=== PATIENT | female | born 1925 | race Caucasian/White ===

== ENCOUNTER → 2016-02-21 | Outpatient (CLI) | payer OTHER ==
[~2016-02-21] MED LIST: ACET-1311 PO; ACET650S10 RE; ALBUAER2 INH; AMOX1TAB43 PO; ARTIOIN OPB; ASPI81TA21 PO; BISA1SUP4 PR; CALC600T PO; CALCTAB5 PO; CARB0.01 OPB; CHOL100010 PO; CITA20TA4 PO; COEN1CAP28 PO; CYAN10005 PO; DILT240C57 PO; DOCU100C31 PO; DONE10TA12 PO; FLUO0.0543 TOP; FLUO0.1S2 OPB; GUAI100S16 PO; GUAI1TAB75 PO; IPRASOL4 INH; JUICE SUPPLEMENT PO; LDXO60 TOP; LEVO1TAB50 PO; LEVO50TA6 PO; LISI5TAB3 PO; LSN5 PO; MEMA10TA PO; MOML PO; MULT-190 PO; MULTCAP33 PO; NTRS PO; OXGN; PRED20TA PO; PRED20TA2 PO; SENN-61 PO; SIMV10TA2 PO; SYMIN8045 PO; UMEC1INH INH
[2016-02-21 11:19] LABS: URINE APPEARANCE CLEAR (CLEAR); URINE BILIRUBIN NEG (NEG); URINE COLOR YELLOW; URINE NITRITE NEG (NEG); URINE PH 5.5 (4.5-7.5); URINE SPECIFIC GRAVITY 1.021 (1.000-1.030); UROBILINOGEN NEG (NEG)
[2016-02-21 11:28] LABS: MANUAL MICROSCOPIC REQUIRED? NO; REVIEW REQ? NO
== END ==
LOC: C.LABUPHEI 10:50
PROVIDERS: ATTEND Family Medicine
DX: R35.0 Frequency of micturition (principal)

== ENCOUNTER → 2016-03-26 | Outpatient (CLI) | payer OTHER ==
[2016-03-26 10:19] LABS: URINE APPEARANCE TURBID (CLEAR); URINE BILIRUBIN NEG (NEG); URINE COLOR YELLOW; URINE EPITHELIAL CELL AUTO 0-5 /lpf (0-5); URINE NITRITE POS (NEG); URINE SPECIFIC GRAVITY 1.009 (1.000-1.030); UROBILINOGEN NEG (NEG)
[2016-03-26 10:26] LABS: MANUAL MICROSCOPIC REQUIRED? NO; REVIEW REQ? NO
[2016-03-26 10:27] LABS: SULFASALICYLIC ACID POS (NEG)
== END ==
LOC: C.LABUPUNI 09:04
PROVIDERS: ATTEND Family Medicine
DX: R35.8 Other polyuria (principal); R39.15 Urgency of urination

== ENCOUNTER → 2016-04-03 | Outpatient (CLI) | payer OTHER ==
[2016-04-03 09:37] LABS: BLOOD UREA NITROGEN 14 mg/dl (7-18); BUN/CREATININE RATIO 16.8 (10-20); CALCIUM 9.2 mg/dl (8.5-10.1); CARBON DIOXIDE 34 mmol/L (21-32); CHLORIDE 102 mmol/L (98-107); CHOLESTEROL 109 mg/dl (0-200); CREATININE 0.81 mg/dl (0.60-1.20); GLUCOSE 99 mg/dl (70-99); POTASSIUM 2.8 mmol/L (3.5-5.1); SODIUM 145 mmol/L (136-145); TRIGLYCERIDES 55 mg/dl (0-150); VERY LOW DENSITY LIPOPROT CALC 11 mg/dl
[2016-04-03 09:47] LABS: CHOLESTEROL/HDL RATIO 2.1; HDL CHOLESTEROL 52 mg/dl; LDL CHOLESTEROL CALCULATED 46 mg/dl
== END ==
LOC: C.LABUPUNI 09:09
PROVIDERS: ATTEND Family Medicine
DX: E03.9 Hypothyroidism, unspecified (principal); E78.5 Hyperlipidemia, unspecified; I10 Essential (primary) hypertension

== ENCOUNTER → 2016-04-07 | Outpatient (CLI) | payer OTHER ==
[2016-04-07 10:25] LABS: BLOOD UREA NITROGEN 10 mg/dl (7-18); CALCIUM 9.4 mg/dl (8.5-10.1); CARBON DIOXIDE 33 mmol/L (21-32); CHLORIDE 103 mmol/L (98-107); CREATININE 0.83 mg/dl (0.60-1.20); GLUCOSE 103 mg/dl (70-99); POTASSIUM 2.9 mmol/L (3.5-5.1); SODIUM 146 mmol/L (136-145)
== END ==
LOC: C.LABUPUNI 09:38
PROVIDERS: ATTEND Family Medicine
DX: L10.9 Pemphigus, unspecified (principal)

== ENCOUNTER → 2016-05-08 | Outpatient (CLI) | payer OTHER ==
[2016-05-08 09:55] LABS: URINE APPEARANCE CLOUDY (CLEAR); URINE BILIRUBIN NEG (NEG); URINE COLOR YELLOW; URINE NITRITE NEG (NEG); URINE PH 6.5 (4.5-7.5); URINE SPECIFIC GRAVITY 1.015 (1.000-1.030); UROBILINOGEN NEG (NEG)
[2016-05-08 10:04] LABS: MANUAL MICROSCOPIC REQUIRED? NO; REVIEW REQ? YES
[2016-05-08 10:15] LABS: URINE EPITHELIAL CELL AUTO 0-5 /lpf (0-5)
[2016-05-08 10:18] LABS: URINE PATH CASTS 0-3 GRANULAR CASTS /lpf (0)
--- NOTE | 2016-05-16 08:54 | CODING QUERY NO DIAGNOSIS ---
TREATMENT RENDERED WITHOUT A DIAGNOSIS : 1925 To promote full compliance with coding requirements relating to patient care, physician participation is requested in all cases of dispensary clerk uncertainty. Please assist us with providing a diagnosis/symptom for the test(s) below: A diagnosis/symptom was not documented on your Order. A valid diagnosis/symptom is required to bill all insurances. Please remember that we are unable to code a diagnosis of rule out, probable, possible, questionable, or suspected. Tests that require a diagnosis: DOS: 05/08/16 * UA CATH DIAGNOSIS: * URINE CULTURE CATH DIAGNOSIS: Provider Signature: Date: Thank you Brianne Mathias [facility] Information Management Once completed, please kindly fax back to [phone] For questions please call [phone]
== END ==
LOC: C.LAB 09:05
PROVIDERS: ATTEND Family Medicine
DX: R35.0 Frequency of micturition (principal); R39.15 Urgency of urination